=== PATIENT | female | born 1980 | race Caucasian/White ===

== ENCOUNTER 2018-08-14 11:08 | Observation (INO) | payer MEDICAID ==
[~2018-08-14] VITALS: Ht 152.4 cm; Wt 76.7 kg
== END 2018-08-14 15:20 | disposition home or self-care (01) ==
LOC: L&D 11:08
PROVIDERS: ADMIT Obstetrics & Gynecology; ATTEND Obstetrics & Gynecology
DX: O09.523 Supervision of elderly multigravida, third trimester (principal); Z3A.39 39 weeks gestation of pregnancy
CPT/HCPCS: 76815; 76818; 99281; G0378

== ENCOUNTER 2018-08-17 11:04 | Inpatient (IN) | payer MEDICAID ==
[~2018-08-17] VITALS: Ht 152.4 cm; Wt 76.7 kg
[2018-08-17] MEDS ORDERED: DEXT 5%/LR + PITOCIN 20UNITS/L 1,000 ML IV SCH ×2 (13:47→17:22)
[2018-08-17 14:45] LABS: INR 0.9; PARTIAL THROMBOPLASTIN TIME 24.9 sec (23.4-31.0); PROTHROMBIN TIME 9.4 sec (9.1-11.1)
[2018-08-17 14:45] LABS: CLARITY URINE CLEAR (CLEAR); COLOR URINE YELLOW (YELLOW); KETONES URINE 1+ (NEGATIVE); LEUKOCYTE ESTERASE URINE NEGATIVE (NEGATIVE); NITRITE URINE NEGATIVE (NEGATIVE); OCCULT BLOOD URINE 1+ (NEGATIVE); PROTEIN URINE NEGATIVE (NEGATIVE); SPECIFIC GRAVITY URINE 1.015 (1.005-1.030); UROBILINOGEN URINE 0.2 E.U./dL (0.2-1.0)
[2018-08-17 14:48] LABS: BASOPHILS % 0.5 % (0.0-2.0); EOSINOPHILS % 0.4 % (0.0-5.0); HEMATOCRIT. 42.1 % (36.0-48.0); HEMOGLOBIN. 14.4 g/dL (12.0-16.0); LYMPHOCYTES % 18.4 % (20.0-50.0); MEAN CORPUSCULAR HEMOGLOBIN 27.5 pg (28.0-32.0); MEAN CORPUSCULAR VOLUME 80.5 fL (81.0-99.0); MEAN PLATELET VOLUME 10.1 fl (7.4-10.4); MONOCYTES % 6.2 % (2.0-8.0); NEUTROPHILS % 74.5 % (40.0-76.0); PLATELET 161 x1000/uL (130-400); RED BLOOD CELL COUNT 5.23 mill/uL (4.2-5.4); RED CELL DISTRIBUTION WIDTH 16.3 % (11.6-14.6)
[2018-08-17 15:11] LABS: *AMPHETAMINES SCREEN URINE NEGATIVE (NEGATIVE); *BARBITURATES SCREEN URINE NEGATIVE (NEGATIVE); *BENZODIAZEPINES SCREEN URINE NEGATIVE (NEGATIVE); *COCAINE SCREEN URINE NEGATIVE (NEGATIVE); CANNABINOID URINE SCREEN NEGATIVE (NEGATIVE); METHADONE URINE SCREEN NEGATIVE (NEGATIVE); OPIATES URINE SCREEN NEGATIVE (NEGATIVE); PHENCYCLIDINE URINE SCREEN NEGATIVE (NEGATIVE)
[2018-08-17] MEDS: LACTATED RINGERS 1,000 ML IV SCH (15:11)
[2018-08-17] MEDS ORDERED: CITRIC ACID/SODIUM CITRATE SOLN 30ML UDC PO ONE (15:15)
[2018-08-17 15:19] LABS: HEPATITIS B SURFACE ANTIGEN NEGATIVE
[2018-08-17] MEDS ORDERED: CEFAZOLIN 2000MG PREMIX 50 ML IV ONE (16:29)
[2018-08-17] MEDS ORDERED: MORPHINE SULFATE/PF 1MG/ML 10ML AMP ONE (16:30)
[2018-08-17] MEDS ORDERED: BUPIVACAINE HCL/DEXTROSE/PF 0.75% 2ML AMP INJ ONE (16:49)
[2018-08-17] MEDS ORDERED: METOCLOPRAMIDE HCL 10MG/2ML VIAL ONE (17:01)
[2018-08-17] MEDS ORDERED: ONDANSETRON HCL 4MG/2ML INJ ONE (17:01)
[2018-08-17] MEDS ORDERED: KETOROLAC 60MG/2ML VIAL IM ONE (17:02)
[2018-08-17] MEDS ORDERED: OXYTOCIN 10 UNITS/ML 1ML ONE (17:20)
[2018-08-17] MEDS ORDERED: RHO(D) IMMUNE GLOBULIN 300 MCG/SYR IM PRN (17:30)
[2018-08-17] MEDS ORDERED: HYDROMORPHONE HCL/PF 2MG/ML CPJ IM PRN (17:30)
[2018-08-17] MEDS ORDERED: ACETAMINOPHEN WITH CODEINE 300/30MG TABLET PO PRN (17:30)
[2018-08-17] MEDS ORDERED: IBUPROFEN 400MG TABLET PO PRN (17:30)
[2018-08-17 21:50] VITALS: BP 124/68
[2018-08-17 22:20] VITALS: BP 120/64
[2018-08-18 07:05] LABS: BASOPHILS % 0.4 % (0.0-2.0); EOSINOPHILS % 0.1 % (0.0-5.0); HEMATOCRIT. 36.4 % (36.0-48.0); HEMOGLOBIN. 12.2 g/dL (12.0-16.0); MEAN CORPUSCULAR HEMOGLOBIN 27.1 pg (28.0-32.0); MEAN CORPUSCULAR VOLUME 80.8 fL (81.0-99.0); MEAN PLATELET VOLUME 10.1 fl (7.4-10.4); NEUTROPHILS % 81.5 % (40.0-76.0); PLATELET 137 x1000/uL (130-400); RED BLOOD CELL COUNT 4.51 mill/uL (4.2-5.4)
[2018-08-18 08:00] VITALS: BP 95/50
[2018-08-18] MEDS: IBUPROFEN 800MG TABLET PO PRN ×2 (11:20→19:48)
[2018-08-18 15:54] VITALS: BP 98/55
[2018-08-18 19:45] VITALS: BP 111/73
[2018-08-18] MEDS: BISACODYL 10MG SUPP PR PRN (19:48)
[2018-08-19] VITALS: BP 101/68
[2018-08-19 04:00] VITALS: BP 103/71
[2018-08-19 08:00] VITALS: BP 115/74
[2018-08-19] MEDS: IBUPROFEN 800MG TABLET PO PRN ×2 (12:09→20:09)
[2018-08-19] MEDS: BISACODYL 10MG SUPP PR PRN (14:30)
[2018-08-19 16:20] VITALS: BP 95/53
[2018-08-19 20:00] VITALS: BP 113/77
[2018-08-20] VITALS: BP 98/58
[2018-08-20 04:00] VITALS: BP 100/56
[2018-08-20 07:50] VITALS: BP 115/77
[2018-08-20] MEDS ORDERED: TETANUS, DIPHTHERIA, PERTUSSIS VAC/PF 0.5ML (>7YR OLD) IM ONE (09:00)
[2018-08-20] MEDS: IBUPROFEN 800MG TABLET PO PRN (12:35)
== END 2018-08-20 13:20 | disposition home or self-care (01) | DRG 540 ==
LOC: OBSVTOIN 11:04 → L&D 11:04 → 7EST PP/OB 20:20
PROVIDERS: ADMIT Obstetrics & Gynecology; ATTEND Obstetrics & Gynecology
PROC: 10D00Z1 Extraction of Products of Conception, Low, Open Approach (ICD-10-PCS; principal; 2018-08-17 17:20)
DX: O32.1XX0 Maternal care for breech presentation, not applicable or unspecified (principal); O09.513 Supervision of elderly primigravida, third trimester; O69.81X0 Labor and delivery complicated by cord around neck, without compression, not applicable or unspecified; Z37.0 Single live birth; Z3A.40 40 weeks gestation of pregnancy
CPT/HCPCS: 36415; 76815; 76818; 80305; 86592; 86703; 86762; 86850; 86900; 87340; 88307; 90715; 99281; J0690; J1885; J2274; J2405; J2590; J2765; J3490; J7120